=== PATIENT | male | born 1955 | race African-American/Black ===

== ENCOUNTER 2016-10-24 20:01 | Emergency (ER) | payer BC, OTHER ==
[2016-10-24] MEDS ORDERED: NORCO 5/325 PO ONE (20:12)
[2016-10-24] MEDS ORDERED: NORCO 5/325 ONE (20:12)
[2016-10-24 21:05] VITALS: BP 151/96
--- NOTE | 2016-10-24 21:35 | XRay Report ---
FINAL REPORT PROCEDURE: XR HAND 3+V LT TECHNIQUE: LEFT 1st finger radiographs, including AP, lateral, and oblique views. HISTORY: Pucture/lac to L thumb, send for report COMPARISON: No prior studies are available for comparison. FINDINGS: There is soft tissue swelling of the 1st digit. There is no fracture or dislocation. There is a 4 millimeter cystic area in the 1st distal phalanx which is most likely unrelated to trauma. There are no foreign bodies.. IMPRESSION: Soft tissue swelling of the 1st digit. No acute fracture is seen.
[2016-10-25] MEDS ORDERED: POLYSPORIN TP ONE (00:22)
[2016-10-25] MEDS ORDERED: BOOSTRIX IM ONE (00:22)
[2016-10-25] MEDS ORDERED: NORCO 7.5/325 PO ONE (00:22)
--- NOTE | 2016-10-25 01:04 | Emergency Department Report ---
ED Upper Extremity Inj HPI - General Chief Complaint: Extremity Injury, Upper Stated Complaint: FINGER INJURY Source: patient Mode of arrival: Ambulatory Limitations: No Limitations - History of Present Illness Initial Comments: 61 year old male presents to ED with left thumb abrasions/bleeding after a power drill cut his thumb. patient states this happened at 4pm. patient denies being on blood thinners. patient is stable, neurologically intact and in no acute distress. bleeding is minimal but is well controlled. patient has no lacerations present needing repair. Complaint: Injury to:: hand (right thumb) -: Sudden, This evening Other Extremity Injury: Fingers: Left (thumb) Other Injuries: none Improves With: none Worsens With: none Context: direct blow Associated Symptoms: denies: weakness, numbness, neck pain, suspects foreign body, nausea/vomiting, heard/felt popping sensat - Related Data Home Medications Medication Instructions Recorded Confirmed Last Taken amLODIPine/VALSARTAN [[place] 1 each PO DAILY 02/10/13 02/10/13 02/10/13 10-320 mg Tablet] Previous Rx's Medication Instructions Recorded Last Taken Type Cyclobenzaprine [Flexeril] 5 mg PO TID PRN #30 tablet 02/10/13 Unknown Rx HYDROcodone/APAP 5-325 [[place] 1 each PO Q6HR PRN #20 tablet 02/10/13 Unknown Rx 5/325 mg] Ketorolac [Toradol] 10 mg PO Q6H PRN #20 tablet 10/25/16 Unknown Rx methOCARBAMOL [Robaxin TAB] 500 mg PO BID #20 tab 10/25/16 Unknown Rx Allergies Allergy/AdvReac Type Severity Reaction Status Date / Time No Known Allergies Allergy Verified 10/24/16 20:15 ED Review of Systems ROS: Stated complaint: FINGER INJURY Other details as noted in HPI Constitutional: denies: chills, fever Eyes: denies: eye pain, eye discharge, vision change ENT: denies: ear pain, throat pain Respiratory: denies: cough, shortness of breath, wheezing Cardiovascular: denies: chest pain, palpitations Endocrine: no symptoms reported Gastrointestinal: denies: abdominal pain, nausea, diarrhea Genitourinary: denies: urgency, dysuria Musculoskeletal: joint swelling (left thumb), arthralgia. denies: back pain Skin: denies: rash, lesions Neurological: denies: headache, weakness, paresthesias Psychiatric: denies: anxiety, depression Hematological/Lymphatic: denies: easy bleeding, easy bruising ED Past Medical Hx - Past Medical History Previous Medical History?: Yes Hx Hypertension: Yes Hx Diabetes: Yes - Surgical History Past Surgical History?: No - Social History Smoking Status: Never Smoker Substance Use Type: Alcohol - Medications Home Medications: Home Medications Medication Instructions Recorded Confirmed Last Taken Type Cyclobenzaprine [Flexeril] 5 mg PO TID PRN #30 tablet 02/10/13 Unknown Rx HYDROcodone/APAP 5-325 [[place] 1 each PO Q6HR PRN #20 tablet 02/10/13 Unknown Rx 5/325 mg] amLODIPine/VALSARTAN [[place] 1 each PO DAILY 02/10/13 02/10/13 02/10/13 History 10-320 mg Tablet] Ketorolac [Toradol] 10 mg PO Q6H PRN #20 tablet 10/25/16 Unknown Rx methOCARBAMOL [Robaxin TAB] 500 mg PO BID #20 tab 10/25/16 Unknown Rx ED Physical Exam - General Limitations: No Limitations General appearance: alert, in no apparent distress - Head Head exam: Present: atraumatic, normocephalic - Eye Eye exam: Present: normal appearance - ENT ENT exam: Present: mucous membranes moist - Neck Neck exam: Present: normal inspection - Respiratory Respiratory exam: Present: normal lung sounds bilaterally. Absent: respiratory distress - Cardiovascular Cardiovascular Exam: Present: regular rate, normal rhythm. Absent: systolic murmur, diastolic murmur, rubs, gallop - GI/Abdominal GI/Abdominal exam: Present: soft, normal bowel sounds - Rectal Rectal exam: Present: deferred - Extremities Exam Extremities exam: Present: normal inspection - Expanded Upper Extremity Exam Left General: Present: abrasion Shoulder Exam: Present: normal inspection, full ROM Upper Arm exam: Present: normal inspection, full ROM Elbow exam: Present: normal inspection, full ROM Forearm Wrist exam: Present: normal inspection, full ROM Hand Wrist exam: Present: full ROM, tenderness (left thumb), swelling (left thumb), abrasion. Absent: laceration, deformity, dislocation, amputation Neuro motor exam: Present: wrist extension intact, thumb adduction intact, fingers 2-5 abduction intact Neurosensory exam: Present: radial nerve intact Vascular: Present: normal capillary refill, radial pulse - Back Exam Back exam: Present: normal inspection - Neurological Exam Neurological exam: Present: alert, oriented X3, normal gait - Psychiatric Psychiatric exam: Present: normal affect, normal mood - Skin Skin exam: Present: warm, dry, intact, normal color. Absent: rash ED Course Vital Signs 10/24/16 20:10 Temperature 98.1 F Pulse Rate 73 Respiratory 18 Rate Blood Pressure 151/96 [Right] O2 Sat by Pulse 99 Oximetry ED Medical Decision Making - Radiology Data Radiology results: report reviewed XR left hand Soft tissue swelling of the 1st digit. No acute fracture is seen. - Medical Decision Making 61 year old male presents to ED with left thumb abrasions and bleeding after using power drill today. bleeding is well controlled. patient has non infected appearing 1st digit. no laceration needing repair present. no foreign body on imaging study. no fracture or dislocation present on left hand. patient unsure of when last tetanus shot so he has received tetanus today during ED visit. patient is stable, neurologically intact and in no acute distress. Critical care attestation.: If time is entered above; I have spent that time in minutes in the direct care of this critically ill patient, excluding procedure time. ED Disposition Clinical Impression: Finger abrasion, non-infected Disposition: DC-01 TO HOME OR SELFCARE Is pt being admited?: No Does the pt Need Aspirin: No Condition: Stable Prescriptions: Ketorolac [Toradol] 10 mg PO Q6H PRN #20 tablet PRN Reason: Pain methOCARBAMOL [Robaxin TAB] 500 mg PO BID #20 tab Referrals: PRIMARY CARE, [Primary Care Provider] - 3-5 Days Forms: Work/School Release Form(ED)
== END 2016-10-25 01:18 | disposition home or self-care (01) ==
LOC: ED 20:01
DX: S60.312A Abrasion of left thumb, initial encounter (principal); I10 Essential (primary) hypertension; E11.9 Type 2 diabetes mellitus without complications; W31.0XXA Contact with mining and earth-drilling machinery, initial encounter; Y93.89 Activity, other specified; Y99.8 Other external cause status; Y92.89 Other specified places as the place of occurrence of the external cause
CPT/HCPCS: 90471; 90715

== ENCOUNTER 2018-06-14 09:53 | Outpatient (CLI) | payer OTHER ==
--- NOTE | 2018-06-14 11:20 | Ultrasound Report ---
ULTRASOUND ABDOMEN LIMITED INDICATION: Chronic hepatitis C. Colon cancer screening. COMPARISON: None similar. FINDINGS: Right upper quadrant sonography suggests slight diffuse nonspecific hepatic coarsening. Grossly preserved contours. No definite focal suspicious lesion or biliary dilatation. No gallstones or pericholecystic fluid. Gallbladder wall thickness is 2 mm. Common bile duct is 3 mm. Imaged pancreas, nonaneurysmal abdominal aorta and IVC within normal limits. Unremarkable right kidney estimated at 9.9 x 4.1 x 5.3 cm with cortical thickness of 1.2 cm. CONCLUSION: Coarse liver without acute right upper quadrant sonographic abnormality, as described. Thank you for the opportunity to participate in this patient's care.
== END 2018-06-14 09:54 | disposition home or self-care (01) ==
LOC: EDBD → US 09:53
PROVIDERS: ATTEND Internal Medicine Gastroenterology
DX: Z12.11 Encounter for screening for malignant neoplasm of colon (principal); K76.89 Other specified diseases of liver; B18.2 Chronic viral hepatitis C; I10 Essential (primary) hypertension
CPT/HCPCS: 76705

== ENCOUNTER 2018-07-25 12:26 | Emergency (ER) | payer MEDICAID, OTHER ==
[2018-07-25] MEDS ORDERED: BACTRIM DS PO ONE (14:56)
[2018-07-25] MEDS ORDERED: KEFLEX PO ONE (14:56)
--- NOTE | 2018-07-25 15:01 | Emergency Department Report ---
ED Lower Extremity HPI - General Chief Complaint: Extremity Injury, Lower Stated Complaint: RT TOE INJURY Time Seen by Provider: 07/25/18 13:59 Source: patient Mode of arrival: Ambulatory Limitations: No Limitations - History of Present Illness Initial Comments: Jeffery is a 16 yo male with hx of juvenile diabetes. He presents with infected ingrown toenail right big toe. Irritation and redness has been present for the last 2 weeks. No fever. He did also stub his toe Toprol recently. He is followed by [facility] clinic. He also is followed by [facility] diabetes clinic. Due to his [id number] insurance he was unable to follow-up with a local personnel analyst. MD Complaint: other (ingrown right big toenail) -: Gradual, week(s) (2) Injury: Foot: Right Type of Injury: blunt Severity: mild Improves With: nothing Worsens With: nothing - Related Data Home Medications Medication Instructions Recorded Confirmed Last Taken amLODIPine/VALSARTAN [[place] 1 each PO DAILY 02/10/13 02/10/13 02/10/13 10-320 mg Tablet] Previous Rx's Medication Instructions Recorded Last Taken Type Cyclobenzaprine [Flexeril] 5 mg PO TID PRN #30 tablet 02/10/13 Unknown Rx HYDROcodone/APAP 5-325 [[place] 1 each PO Q6HR PRN #20 tablet 02/10/13 Unknown Rx 5/325 mg] Ketorolac [Toradol] 10 mg PO Q6H PRN #20 tablet 10/25/16 Unknown Rx methOCARBAMOL [Robaxin TAB] 500 mg PO BID #20 tab 10/25/16 Unknown Rx Sulfamethoxazole/Trimethoprim 1 each PO BID 7 Days #14 tablet 07/25/18 Unknown Rx [Bactrim DS TAB] cephALEXin [Keflex] 500 mg PO Q6HR 7 Days #28 capsule 07/25/18 Unknown Rx Allergies Allergy/AdvReac Type Severity Reaction Status Date / Time No Known Allergies Allergy Verified 10/24/16 20:15 ED Review of Systems ROS: Stated complaint: RT TOE INJURY Other details as noted in HPI Constitutional: denies: fever, malaise Neurological: denies: numbness, paresthesias ED Past Medical Hx - Past Medical History Previous Medical History?: Yes Hx Hypertension: Yes Hx Diabetes: Yes - Surgical History Past Surgical History?: No - Social History Smoking Status: Never Smoker Substance Use Type: None - Medications Home Medications: Home Medications Medication Instructions Recorded Confirmed Last Taken Type Cyclobenzaprine [Flexeril] 5 mg PO TID PRN #30 tablet 02/10/13 Unknown Rx HYDROcodone/APAP 5-325 [[place] 1 each PO Q6HR PRN #20 tablet 02/10/13 Unknown Rx 5/325 mg] amLODIPine/VALSARTAN [[place] 1 each PO DAILY 02/10/13 02/10/13 02/10/13 History 10-320 mg Tablet] Ketorolac [Toradol] 10 mg PO Q6H PRN #20 tablet 10/25/16 Unknown Rx methOCARBAMOL [Robaxin TAB] 500 mg PO BID #20 tab 10/25/16 Unknown Rx Sulfamethoxazole/Trimethoprim 1 each PO BID 7 Days #14 tablet 07/25/18 Unknown Rx [Bactrim DS TAB] cephALEXin [Keflex] 500 mg PO Q6HR 7 Days #28 capsule 07/25/18 Unknown Rx ED Physical Exam - General Limitations: No Limitations General appearance: alert, in no apparent distress - Head Head exam: Present: atraumatic, normocephalic - Extremities Exam Extremities exam: Present: other (right big toe ingrown toenail without purulence or surrounding redness) ED Course Vital Signs 07/25/18 13:45 Temperature 98.4 F Pulse Rate 104 Respiratory 16 Rate Blood Pressure 130/75 O2 Sat by Pulse 97 Oximetry ED Lower Extremity MDM - Medical Decision Making Ingrown toenail right great toe, history of diabetes mellitus. Referred to his PCP and diabetes clinic for referral to personnel analyst. Prescribed Bactrim and Keflex as antibiotic prophylaxis considering high risk for infection Critical care attestation.: If time is entered above; I have spent that time in minutes in the direct care of this critically ill patient, excluding procedure time. ED Disposition Clinical Impression: Ingrown toenail of right foot, Diabetes mellitus Disposition: - TO HOME OR SELFCARE Is pt being admited?: No Does the pt Need Aspirin: No Condition: Stable Instructions: Ingrown Nail (ED) Prescriptions: Sulfamethoxazole/Trimethoprim [Bactrim DS TAB] 1 each PO BID 7 Days #14 tablet cephALEXin [Keflex] 500 mg PO Q6HR 7 Days #28 capsule Referrals: BENITA MELGAR DPM [Staff Physician] - [facility] JOSE M BERNAL DPM [Referring] - 3-5 Days
[2018-07-25 15:17] VITALS: BP 122/71
== END 2018-07-25 15:17 | disposition home or self-care (01) ==
LOC: EDBD → ED 12:26
DX: L60.0 Ingrowing nail (principal); E11.9 Type 2 diabetes mellitus without complications; I10 Essential (primary) hypertension
CPT/HCPCS: 99282

== ENCOUNTER 2019-02-02 15:58 | Emergency (ER) | payer MEDICAID, OTHER ==
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
[2019-02-02 17:28] VITALS: BP 142/89
[2019-02-02] MEDS ORDERED: oxyCODONE /ACETAMINOPHEN 5-325MG TAB PO ONE (19:05)
[2019-02-02] MEDS ORDERED: IBUPROFEN 600 MG TAB PO ONE (19:05)
[2019-02-02] MEDS ORDERED: ONDANSETRON 4 MG ODT TAB PO ONE (19:05)
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
== END 2019-02-02 20:00 | disposition left against medical advice (07) ==
LOC: ED 15:58
DX: S43.401A Unspecified sprain of right shoulder joint, initial encounter (principal); M62.838 Other muscle spasm; I10 Essential (primary) hypertension; E11.9 Type 2 diabetes mellitus without complications; V49.49XA Driver injured in collision with other motor vehicles in traffic accident, initial encounter; Y93.89 Activity, other specified; Y92.89 Other specified places as the place of occurrence of the external cause; Y99.8 Other external cause status
CPT/HCPCS: 70450; 72125; 82962; Q0162